=== PATIENT | male | born 1955 | race Caucasian/White ===

== ENCOUNTER 2021-05-28 07:48 | Observation (INO) | payer OTHER, MEDICARE ==
[2021-05-23 10:42] LABS: CLARITY,URINE CLEAR (Clear); COLOR,URINE YELLOW (Yellow); GLUCOSE, URINE NEGATIVE (Neg); KETONES,URINE NEGATIVE (Neg); LEUKOCYTE ESTERASE ,URINE NEGATIVE (Neg); NITRITES, URINE NEGATIVE (Neg); OCCULT BLOOD,URINE NEGATIVE (Neg); PH,URINE 6.5 (4.8-8.0); PROTEIN,URINE NEGATIVE (Neg); UA COLLECTION TYPE CLN CATCH MIDSTREAM; UROBILINOGEN,URINE 0.2 E.U/dL (0.2-1.0)
[2021-05-23 10:44] LABS: BASOPHILS % (AUTO) 0.5 % (0-1); EOSINOPHILS # (AUTO) 0.2 X10'3 (0-0.9); LYMPHOCYTES % (AUTO) 21.7 % (21-51); MEAN CORPUSCULAR HEMOGLOBIN 30.3 PG (27.0-31.0); MEAN CORPUSCULAR HGB CONC 33.7 g/dL (33.0-36.5); MEAN CORPUSCULAR VOLUME 89.8 FL (78-98); MEAN PLATELET VOLUME 7.7 FL (7.4-10.4); MONOCYTES # (AUTO) 0.7 X10'3 (0-0.9); MONOCYTES % (AUTO) 7.7 % (2-12); NEUTROPHILS # (AUTO) 6.2 X10'3 (1.8-7.7); NEUTROPHILS % (AUTO) 68.1 % (42-75); PRE OP HEMATOCRIT 47.7 % (42.0-52.0); PRE OP HEMOGLOBIN 16.1 g/dL (14.0-17.9); PRE OP PLATELET COUNT 275 X10'3 (140-440); RED BLOOD COUNT 5.31 X10'6 (4.70-6.10); RED CELL DISTRIBUTION WIDTH 13.6 % (11.5-14.5)
[2021-05-23 10:59] LABS: ALBUMIN 3.8 G/DL (3.4-5.0); ALBUMIN/GLOBULIN RATIO 0.9 (1.1-1.5); ALKALINE PHOSPHATASE 87 IU/L (46-116); BLOOD UREA NITROGEN 17 MG/DL (7-18); BUN/CREATININE RATIO 12.5 (5.4-32.0); CHLORIDE 106 MMOL/L (99-107); CREATININE 1.36 MG/DL (0.60-1.10); PRE OP ALT 50 U/L (30-65); PRE OP ANION GAP 7 (8-16); PRE OP AST 24 U/L (10-37); PRE OP BILIRUB, TOTAL 0.6 MG/DL (0.0-1.0); PRE OP GLUCOSE 101 MG/DL (70-104); PRE OP POTASSIUM 4.3 MMOL/L (3.4-5.1); PRE OP SODIUM 143 MMOL/L (135-145); TOTAL CARBON DIOXIDE 29.8 MMOL/L (24-32); TOTAL PROTEIN 7.9 G/DL (6.4-8.2); eGFR 52 ML/MIN
[~2021-05-28] VITALS: Ht 182.9 cm; Wt 98.1 kg
[2021-05-28] VITALS (28 sets, daily range): BP systolic 112–168; BP diastolic 56–104
[~2021-05-28 07:48] MED LIST: TOBR5DRO7 LEFTEYE; ZOLP10TA PO; cefazolin/dext.iso 2gm/50ml IV ONE; famotidine 20mg tablet PO ONE
[2021-05-28] MEDS: ringers solution, lacted 1,000 ML IV SCH ×2 (09:40→23:27)
[2021-05-28] MEDS ORDERED: proCHLORperazine 10 MG/2 ml inj IV PRN ×2 (11:00→11:30)
[2021-05-28] MEDS ORDERED: morphine 2 MG/ML inj. syringe IV PRN ×2 (11:00→11:30)
[2021-05-28] MEDS ORDERED: morphine 4 MG/ML inj SYRINge IV PRN ×2 (11:00→11:30)
[2021-05-28] MEDS ORDERED: ondansetron/PF 4mg/2ml inj IV PRN ×2 (11:00→11:30)
[2021-05-28] MEDS ORDERED: meperidine/PF 25mg/ml syringe IV PRN ×5 (11:00→11:30)
[2021-05-28] MEDS ORDERED: ringers solution, lacted 1,000 ML IV SCH ×2 (11:00→11:30)
[2021-05-28] MEDS ORDERED: BUPIVAcaine/PF 2.5 mg/ml (0.25%) 30ml vial ONE (11:04)
[2021-05-28] MEDS ORDERED: fentaNYL /PF 50mcg/ml 5ml ampule ONE (11:17)
[2021-05-28] MEDS ORDERED: midazolam 1 mg/ML 2ml injection ONE (11:17)
[2021-05-28] MEDS ORDERED: hydrALAZINE 20mg/ml inj. IV PRN (11:30)
[2021-05-28] MEDS ORDERED: labetalol 20mg/4ml (5mg/ml) syringe IV PRN (11:30)
[2021-05-28] MEDS ORDERED: acetaminophen 1,000mg/100ml IV 100 ML IV PRN (11:30)
[2021-05-28] MEDS ORDERED: ketorolac trometh. 30mg/ml inj. IV ONE (11:30)
[2021-05-28] MEDS ORDERED: propofol inj 20 ML IV ONE (11:32)
[2021-05-28] MEDS ORDERED: LIDOcaine 2% (20mg/ml) 5ml vial ONE (11:32)
[2021-05-28] MEDS ORDERED: dexamethasone sod phosphate 4mg/ml inj. ONE (11:33)
[2021-05-28] MEDS ORDERED: rocuronium 10mg/ml inj IV ONE ×2 (11:33→13:38)
[2021-05-28] MEDS ORDERED: ondansetron/PF 4mg/2ml inj ONE (11:33)
[2021-05-28] MEDS ORDERED: morphine 10mg/ml inj. ONE (13:11)
[2021-05-28] MEDS ORDERED: glycopyrrolate 0.2mg/ml inj ONE (13:33)
[2021-05-28] MEDS ORDERED: neostigmine methylsulfate 1 MG/ML 10ml vial ONE (13:33)
[2021-05-28] MEDS ORDERED: sugammadex 200mg/2ml injection IV ONE (13:35)
--- NOTE | 2021-05-28 13:40 | NUR ---
Received from OR via [facility] , accompanied by Anesthesiologist DR TREVIÑO and report given by Anesthesiolgist. PATIENT AWAKE, C/O 04/20 ABD PAIN, VSS, NEUROVASCULAR CHECKS INTACT, 20G PIV RT HAND, DERMABOND TO LAP SIGHTS OF ABDOMEN CDI. ABD SLIGHTLY DISTENDED, PT STATES THAT IS HIS USUAL ANATOMY. F/C TO GRAVITY DRAINAGE WITH CLEAR YELLOW URINE PRESENT APPOX 500MLS. MEDICATED FOR PAIN ON ARRIVAL Addendum: 05/28/21 at 1419 by Perla Allen RN Amended: Links added.
[2021-05-28] MEDS: meperidine/PF 25mg/ml syringe IV PRN ×2 (13:51→14:01)
--- NOTE | 2021-05-28 14:20 | NUR ---
PT DOZING INTERMITTENTLY. WHEN AWAKE STATES "BETTER" PAIN CONTROL, 6/10 SCALE
[2021-05-28] MEDS ORDERED: CADD PCA waste documentation MC PRN (14:50)
[2021-05-28] MEDS ORDERED: naloxone 0.4 mg/ml inj IV PRN (14:50)
[2021-05-28] MEDS ORDERED: HYDROmorph./NS 0.2 mg/ml CADD 100 ML IV SCH (14:50)
[2021-05-28] MEDS ORDERED: oxyCODONE/APAP 10/325mg tablet PO PRN ×2 (14:50)
--- NOTE | 2021-05-28 16:40 | NUR ---
VSS. AT THE BEDSIDE. PT STATES ADEQUATE PAIN RELIEF WITH DILAUDID CADD. BRAIN PO FLUIDS WELL. FC CLEAR YELLOW DRAINAGE. IV PATENT #20 RIGHT HAND. ABD INC CDI, ABD SOFT. PATIENT TAKEN AND HOOKED UP TO MONITORS IN ROOM AND REPORT GIVEN TO RN WHO HAS TAKEN OVER PATIENT CARE, NATAN SINGH. Addendum: 05/28/21 at 1716 by Perla Allen RN Amended: Links added.
[2021-05-28] MEDS: HYDROmorph./NS 0.2 mg/ml CADD 100 ML IV SCH ×5 (17:00→23:00)
--- NOTE | 2021-05-28 18:28 | NUR ---
1700 pt arrived to unit from pacu with CADD, diaz, and iv fluids; pt A&Ox4; seds in place; abd lapx3 dry, LANI, sutures intact on right incision, pt educated to call for help prn and
--- NOTE | 2021-05-28 18:40 | NUR ---
Problems reprioritized. Patient report given, questions answered & plan of care reviewed with nicanor garnica
--- NOTE | 2021-05-28 18:45 | NUR ---
Patient in room SEAR 360. I have received report from Katie SINGH and had the opportunity to ask questions and assume patient care.
[2021-05-28] MEDS ORDERED: oxyCODONE/APAP 10/325mg tablet PO ONE (20:25)
[2021-05-28] MEDS: ciprofloxacin 250mg tablet PO SCH (21:34)
[2021-05-28] MEDS: ketorolac trometh. 30mg/ml inj. IM SCH (21:37)
[2021-05-29] VITALS: BP 108/57
[2021-05-29] MEDS: HYDROmorph./NS 0.2 mg/ml CADD 100 ML IV SCH ×6 (01:00→10:10)
[2021-05-29] MEDS: ringers solution, lacted 1,000 ML IV SCH (01:41)
[2021-05-29] MEDS: ketorolac trometh. 30mg/ml inj. IM SCH ×2 (01:46→08:29)
--- NOTE | 2021-05-29 06:43 | NUR ---
I have reviewed and agree with all interventions, assessments performed and documented by Melody SINGH .
--- NOTE | 2021-05-29 06:43 | NUR ---
Problems reprioritized. Patient report given, questions answered & plan of care reviewed with Ana SINGH.
[2021-05-29 07:00] VITALS: BP 127/59
[2021-05-29] MEDS: ciprofloxacin 250mg tablet PO SCH (08:25)
--- NOTE | 2021-05-29 10:45 | NUR ---
Patient stable and appropriate for discharge home with . IV removed, all belongings taken from room. New prescriptions have already been picked up by the patients . Patient has been instructed on diaz catheter care. All discharge instructions and education have been given and reviewed with patient and his . All questions answered. Return demonstration completed with diaz care. Patient was given a leg bag, and a night time bag. Patients items picked up from [employer] safe on DC.
== END 2021-05-29 10:48 | disposition home or self-care (01) ==
LOC: PAS 07:48 → SUR 3N 14:57 → UNDOADMOB 17:23 → SUR 3N 17:23
PROVIDERS: ADMIT Surgery; ATTEND Surgery
DX: K40.20 Bilateral inguinal hernia, without obstruction or gangrene, not specified as recurrent (principal); Z20.822 Contact with and (suspected) exposure to COVID-19; K42.9 Umbilical hernia without obstruction or gangrene; G47.30 Sleep apnea, unspecified; E03.9 Hypothyroidism, unspecified; E78.5 Hyperlipidemia, unspecified; Z96.652 Presence of left artificial knee joint; Z79.899 Other long term (current) drug therapy
CPT/HCPCS: 36415; 49505; 49585; 80053; 81003; 82948; 85025; 93005; 96372; 96374; 96375; C1758; C1781; C9399; G0378; J0131; J1100; J1170; J1885; J2001; J2175; J2250; J2270; J2405; J2704; J2710; J3010; J3490; J7120; S2900; U0003; U0005; A4215; A4618; A7000

== ENCOUNTER 2024-10-19 08:18 | Outpatient (CLI) | payer MEDICARE ==
[~2024-10-19 08:18] MED LIST changes: +ZOLP-679 PO; -ZOLP10TA PO; -cefazolin/dext.iso 2gm/50ml IV ONE; -famotidine 20mg tablet PO ONE
== END 2024-10-19 23:59 | disposition home or self-care (01) ==
LOC: MRI02 08:18
PROVIDERS: ATTEND Family Medicine
DX: M51.17 Intervertebral disc disorders with radiculopathy, lumbosacral region (principal); M54.50 Low back pain, unspecified; M47.27 Other spondylosis with radiculopathy, lumbosacral region; M25.80 Other specified joint disorders, unspecified joint; M48.07 Spinal stenosis, lumbosacral region
CPT/HCPCS: 72148